=== PATIENT | female | born 1980 | race American Indian/Alaskan Native ===

== ENCOUNTER 2017-09-14 20:32 | Emergency (ER) | payer OTHER ==
--- NOTE | 2017-09-14 22:00 | Emergency Department Report ---
ED Back Pain/Injury HPI - General Chief Complaint: Back Pain/Injury Stated Complaint: LOWER BACK PAIN Time Seen by Provider: 09/14/17 21:39 Source: patient Limitations: No Limitations - History of Present Illness Initial Comments: Patient here reports that she was bending over to tie her shoes and she heard a pop in the lower part of her back. She is now complaining of lower back pain and radiation down to her right leg that is 10 out of 10. She denies any fever. She reports that she has urinary frequency but no burning in. I asked her if urinary frequencies needle and she says yes. Last menstrual period 09/14 and she is currently on her menses. Denies any nausea or vomiting. Denies any abdominal pain. She said the pain is cramp and achy/sharp in her back and sharp pain radiating down her right leg. Denies any trauma. She denies any similar incident in the past. No history of back pain per patient MD Complaint: back pain, back injury -: This evening Similar Symptoms Previously: No Place: home Radiation: right leg Severity: severe Severity scale (0 -10): 10 Quality: sharp, aching, other (cramping) Consistency: constant Improves With: immobilization Worsens With: movement, walking Associated Symptoms: difficulty walking. denies: confusion, weakness, chest pain, numbness, cough, difficulty urinating, diaphoresis, incontinence, fever/ chills, constipation, headaches, abdominal pain, loss of appetite, malaise, nausea/vomiting, rash, seizure, shortness of breath, syncope Treatments Prior to Arrival: other (none) - Related Data Previous Rx's Medication Instructions Recorded Last Taken Type Ibuprofen [Motrin] 600 mg PO Q8H PRN 5 Days #15 tablet 09/14/17 Unknown Rx Nitrofurantoin Monohyd/M-Cryst 100 mg PO Q12H 7 Days #14 capsule 09/14/17 Unknown Rx [Macrobid 100 mg Capsule] Allergies Allergy/AdvReac Type Severity Reaction Status Date / Time No Known Allergies Allergy Verified 09/14/17 20:59 ED Review of Systems ROS: Stated complaint: LOWER BACK PAIN Other details as noted in HPI Comment: All other systems reviewed and negative Constitutional: no symptoms reported Respiratory: no symptoms reported Cardiovascular: denies: chest pain, palpitations, dyspnea on exertion, orthopnea , edema, syncope Gastrointestinal: denies: abdominal pain, nausea, vomiting, diarrhea, constipation Genitourinary: frequency. denies: urgency, dysuria, hematuria, discharge, abnormal menses, dyspareunia Musculoskeletal: back pain, arthralgia. denies: joint swelling, myalgia Skin: denies: rash Neurological: abnormal gait. denies: headache, weakness, numbness, paresthesias , confusion, vertigo ED Past Medical Hx - Past Medical History Previous Medical History?: Yes Additional medical history: Obesity - Surgical History Past Surgical History?: No - Family History Family history: no significant - Social History Smoking Status: Never Smoker Substance Use Type: Alcohol - Medications Home Medications: Home Medications Medication Instructions Recorded Confirmed Last Taken Type Ibuprofen [Motrin] 600 mg PO Q8H PRN 5 Days #15 tablet 09/14/17 Unknown Rx Nitrofurantoin Monohyd/M-Cryst 100 mg PO Q12H 7 Days #14 capsule 09/14/17 Unknown Rx [Macrobid 100 mg Capsule] ED Physical Exam - General Limitations: No Limitations General appearance: alert, in no apparent distress - Head Head exam: Present: atraumatic, normocephalic, normal inspection - Eye Eye exam: Present: normal appearance, PERRL, EOMI. Absent: periorbital swelling , periorbital tenderness Pupils: Present: normal accommodation - ENT ENT exam: Present: normal exam, normal orophraynx, mucous membranes moist - Neck Neck exam: Present: normal inspection, full ROM, other (no cspine tenderness). Absent: tenderness, meningismus, lymphadenopathy, thyromegaly - Respiratory Respiratory exam: Present: normal lung sounds bilaterally. Absent: respiratory distress, chest wall tenderness - Cardiovascular Cardiovascular Exam: Present: regular rate, normal rhythm, normal heart sounds. Absent: systolic murmur, diastolic murmur - GI/Abdominal GI/Abdominal exam: Present: soft, normal bowel sounds. Absent: distended, tenderness, guarding, rebound, rigid - Extremities Exam Extremities exam: Present: normal inspection, full ROM, normal capillary refill , other (patient with no clubbing, cyanosis or edema to extremities. No neurovascular compromise. +2 pulses in all extremities. Patient able to ambulate without any difficulties. No joint deformities, effusion, crepitus, erythema, restrictions, and +5/5 strength in all extremities. No ecchymotic, laceration or cellulitic area to extremities.). Absent: tenderness, pedal edema , joint swelling, calf tenderness - Back Exam Back exam: Present: normal inspection, full ROM, tenderness, vertebral tenderness (lumbar spine). Absent: CVA tenderness (R), CVA tenderness (L), muscle spasm, paraspinal tenderness, rash noted - Expanded Back Exam Expanded Back exam: Absent: saddle anesthesia Back exam: Negative Straight Leg Raising: Left, Right - Neurological Exam Neurological exam: Present: alert, oriented X3, normal gait, reflexes normal. Absent: motor sensory deficit - Expanded Neurological Exam Expanded Neurological exam: Absent: innattentive, memory loss-remote event, memory loss- recent event, ataxia, receptive aphasia, expressive aphasia, total aphasia, tremor, protecting the airway Patient oriented to: Present: person, place, time Speech: Present: fluid speech Cranial nerves: EOM's Intact: Normal, Gag Reflex: Normal, Tongue Deviation: Normal, Nystagmus: Normal, Facial Sensation: Normal Cerebellar function: Romberg: Normal Upper motor neuron: Sensory Extinction: Normal Sensory exam: Upper Extremity Light Touch: Normal, Upper Extremity Pin Prick: Normal, Upper Extremity Temperature: Normal, UE 2 Point Discrimination: Normal, Lower Extremity Light Touch: Normal, Lower Extremity Pin Prick: Normal, Lower Extremity Temperature: Normal, LE 2 Point Discrimination: Normal Motor strength exam: RUE: 5, LUE: 5, RLE: 5, LLE: 5 DTR: bicep (R): 2+, bicep (L): 2+, tricep (R): 2+, tricep (L): 2+, knee (R): 2+ , knee (L): 2+, ankle (R): 2+, ankle (L): 2+ Best Eye Response (Alexia): (4) open spontaneously Best Motor Response (Pitman): (6) obeys commands Best Verbal Response (Alexia): (5) oriented Pitman Total: 15 - Psychiatric Psychiatric exam: Present: normal affect, normal mood - Skin Skin exam: Present: warm, dry, intact, normal color. Absent: rash ED Course Vital Signs 09/14/17 09/15/17 20:59 01:00 Temperature 98.8 F Pulse Rate 77 67 Respiratory 16 18 Rate Blood Pressure 126/83 Blood Pressure 120/64 [Left] O2 Sat by Pulse 100 99 Oximetry - Reevaluation(s) Reevaluation #1: 09/14/17 22:23 given [place] 5/325 2 tablets by mouth, Flexeril 10 mg when necessary emergency room. Urinalysis and urine sent and awaiting results. CT scan of the lumbar spine pending urinalysis results Reevaluation #2: 09/14/17 23:05 She was stable at present. Urinalysis reveal positive urinary tract infection with moderate amount of blood but patient started her period yesterday. test is negative and patient awaiting CT scan of her lumbar spine due to complaints of radiation to her right leg.Pt to receive Rocephin 1 g IM ED Medical Decision Making - Lab Data Lab Results 09/14/17 Range/Units 22:25 Urine Color Yellow (Yellow) Urine Turbidity Clear (Clear) Urine pH 6.0 (5.0-7.0) Ur Specific [place] 1.014 (1.003-1.030) Urine Protein 30 mg/dl (Negative) mg/dL Urine Glucose (UA) Neg (Negative) mg/dL Urine Ketones Neg (Negative) mg/dL Urine Blood Mod (Negative) Urine Nitrite Neg (Negative) Urine Bilirubin Neg (Negative) Urine Urobilinogen < 2.0 (<2.0) mg/dL Ur Leukocyte Esterase Mod (Negative) Urine WBC (Auto) 32.0 H (0.0-6.0) /HPF Urine RBC (Auto) 11.0 (0.0-6.0) /HPF U Epithel Cells (Auto) 8.0 (0-13.0) /HPF Urine Mucus Few /HPF Urine HCG, Qual Negative (Negative) Urine culture pending Patient has moderate amount of blood in her urine because she was started on her menses on 09/14/2017 - Radiology Data Radiology results: report reviewed CT of the lumbar spine reveal disc bulge with right lateral stenosis. No acute fracture or malalignment. - Medical Decision Making ED course: Pthere complaining of lower back pain with radiculopathy. Urinalysis sent and patient positive for urinary tract infection. She was given Rocephin 1 g IM in emergency room without any adverse reaction. She was given Flexeril 10 mg by mouth, Zofran 4 mg ODT and [place] 5/325 2 tablets emergency room for back pain which she said helped her back pain. CT scan of the lumbar spine reveal disc bulge with stenosis without any fracture or malalignment. Results of urinalysis and CT scan related to patient and it was discussed with her that she will need to follow up with orthopedic doctor and also her primary care physician. Patient was understanding of discharge instruction and treatment plan. Discharged home in stable condition from ED with prescription for Macrobid and ibuprofen. Critical care attestation.: If time is entered above; I have spent that time in minutes in the direct care of this critically ill patient, excluding procedure time. ED Disposition Clinical Impression: Lumbar radiculopathy, right, Acute cystitis with hematuria Back pain Qualifiers: Back pain location: low back pain Chronicity: acute Back pain laterality: bilateral Sciatica presence: with sciatica Sciatica laterality: sciatica of right side Qualified Code(s): M54.41 - Lumbago with sciatica, right side Disposition: - TO HOME OR SELFCARE Is pt being admited?: No Does the pt Need Aspirin: No Condition: Stable Instructions: Lumbar Radiculopathy (ED), Back Pain (ED) Additional Instructions: Please do not drive or operate heavy machinery while taking pain medication as this medication can cause drowsiness please increase her fluid intake. Follow-up with orthopedic doctor as instructed Follow instructions on acute wound care Please follow up with your primary care physician as instructed and if you do not have one you can follow-up at [facility] Your urine is showing that she you have a urinary tract infection so he will need to start taking antibiotic. Urine test is negative Prescriptions: Ibuprofen [Motrin] 600 mg PO Q8H PRN 5 Days #15 tablet PRN Reason: Pain Nitrofurantoin Monohyd/M-Cryst [Macrobid 100 mg Capsule] 100 mg PO Q12H 7 Days # 14 capsule Referrals: PRIMARY CARE, [Primary Care Provider] - 09/17/17 WILLY MORALEZ MD [Staff Physician] - 09/17/17 [facility] [Outside] - 09/17/17 Forms: Accompanied Note, Work/School Release Form(ED)
[2017-09-14] MEDS ORDERED: ZOFRAN ODT PO ONE (22:04)
[2017-09-14] MEDS ORDERED: FLEXERIL PO ONE (22:04)
[2017-09-14] MEDS ORDERED: NORCO 5/325 PO ONE (22:04)
[2017-09-14 22:56] LABS: Bilirubin,Urine NEG (Negative); Blood,Urine MOD (Negative); Ketones,Urine NEG (Negative); Leukocyte Esterase,Urine MOD (Negative); Mucus,Urine FEW /HPF; Nitrite,Urine NEG (Negative); Urobilinogen,Urine < 2.0 mg/dL (<2.0)
[2017-09-14] MEDS ORDERED: XYLOCAINE 1% MPF 5 mL INFILTRATI ONE (23:18)
[2017-09-14] MEDS ORDERED: ROCEPHIN IM ONE (23:18)
--- NOTE | 2017-09-15 00:32 | Cat Scan Report ---
FINAL REPORT PROCEDURE: CT LUMBAR SPINE WO CON TECHNIQUE: Computerized axial tomography of the lumbar spine was performed from T12 to the sacrum without contrast material. HISTORY: lumbar spine pain with radiculopathy COMPARISON: No prior studies are available for comparison. FINDINGS: L1-2: No significant abnormality. L2-3: No significant abnormality. L3-4: No significant abnormality. L4-5: No significant abnormality. L5-S1: There is disc bulging causing right lateral recess stenosis.. Other: There are no fractures or malalignments.. IMPRESSION: There is a disc bulge at L5-S1 with right lateral recess stenosis. There are no fractures or malalignments.
[2017-09-15 01:01] VITALS: BP 120/64
== END 2017-09-15 01:02 | disposition home or self-care (01) ==
LOC: ED 20:32
DX: M54.16 Radiculopathy, lumbar region (principal); N30.01 Acute cystitis with hematuria; M54.41 Lumbago with sciatica, right side
CPT/HCPCS: 72131; 81001; 81025; 87086; 96372; 99284; J0696; Q0162